=== PATIENT | male | born 2000 | race Two or more races ===

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

== ENCOUNTER → 2020-05-21 | Outpatient (CLI) | payer BC ==
[2020-05-21 12:42] LABS: Basophils # (auto) 0 10 ^3/uL (0-0.2); Basophils % (auto) 0.7 % (0.0-2.0); Eosinophils # (auto) 0.1 10 ^3/uL (0-0.8); Eosinophils % (auto) 1.6 % (0.0-7.0); Hematocrit 48.4 % (41.0-53.0); Hemoglobin 16.6 g/dL (13.5-17.5); Lymphocytes # (auto) 1.4 10 ^3/uL (0.4-5.4); Lymphocytes % (auto) 24.6 % (10.0-50.0); Mean Corpuscular Hemoglobin 31.8 pg (28.0-32.0); Mean Corpuscular Hgb Conc. 34.3 g/dL (32.0-36.0); Mean Corpuscular Volume 92.6 fL (80.0-100.0); Monocytes # (auto) 0.5 10 ^3/uL (0-1.3); Monocytes % (auto) 9.7 % (0.0-12.0); Neutrophils # (auto) 3.6 10 ^3/uL (1.6-8.6); Neutrophils % (auto) 63.4 % (37.0-80.0); Platelet Count (auto) 278 10^3/uL (140-450); Red Blood Cells 5.23 10^6/uL (4.5-5.90); Red Cell Distribution Width 13.4 % (11.8-14.3); White Blood Cell 5.7 10^3/uL (4.4-10.8)
[2020-05-21 12:58] LABS: Calcium 9.1 mg/dL (8.5-10.1); Potassium 3.9 mmol/L (3.5-5.1)
[2020-05-21 13:03] LABS: BUN/Creatinine Ratio 10.6; Bilirubin, Total 0.5 mg/dL (0.2-1.0); CRP High Sensitivity 0.14 mg/dL (< 0.3); Total Protein 7.7 g/dL (6.4-8.2)
== END | disposition home or self-care (01) ==
LOC: LAB 12:26
PROVIDERS: ATTEND Internal Medicine
DX: Z00.00 Encounter for general adult medical examination without abnormal findings (principal); E66.9 Obesity, unspecified; R51 Headache
CPT/HCPCS: 36415; 80053; 80061; 83036; 84443; 85025; 85652; 86141

== ENCOUNTER 2021-09-27 15:57 | Emergency (ER) | payer BC, MEDICAID ==
[~2021-09-27] VITALS: Ht 177.8 cm; Wt 95.3 kg
[2021-09-27 16:42] VITALS: BP 147/84
[2021-09-27] MEDS ORDERED: ACETAMINOPHEN 500 MG TAB PO ONE (16:45)
[2021-09-27] MEDS ORDERED: ACET-1080 PO (17:43)
[2021-09-27] MEDS ORDERED: HYDR50CA PO (17:43)
== END 2021-09-27 17:48 | disposition home or self-care (01) ==
LOC: ER 16:00
DX: G44.209 Tension-type headache, unspecified, not intractable (principal); F12.10 Cannabis abuse, uncomplicated
CPT/HCPCS: 70450

== ENCOUNTER → 2023-05-19 | Outpatient (CLI) | payer BC, MEDICAID ==
[~2023-05-19] MED LIST: ACET-1080 PO; HYDR50CA PO
[2023-05-19 10:09] LABS: Basophils # (auto) 0.1 10 ^3/uL (0-0.2); Basophils % (auto) 0.8 % (0.0-2.0); Eosinophils # (auto) 0.2 10 ^3/uL (0-0.8); Eosinophils % (auto) 2.8 % (0.0-7.0); Hematocrit 46.9 % (41.0-53.0); Hemoglobin 16.3 g/dL (13.5-17.5); Lymphocytes # (auto) 2.3 10 ^3/uL (0.4-5.4); Lymphocytes % (auto) 33.4 % (10.0-50.0); Mean Corpuscular Hemoglobin 31.7 pg (28.0-32.0); Mean Corpuscular Hgb Conc. 34.7 g/dL (32.0-36.0); Mean Corpuscular Volume 91.3 fL (80.0-100.0); Monocytes # (auto) 0.9 10 ^3/uL (0-1.3); Monocytes % (auto) 12.7 % (0.0-12.0); Neutrophils # (auto) 3.5 10 ^3/uL (1.6-8.6); Neutrophils % (auto) 50.3 % (37.0-80.0); Nucleated Red Blood Cells % 0.1 %; Red Blood Cells 5.14 10^6/uL (4.5-5.90); Red Cell Distribution Width 13.5 % (11.8-14.3); White Blood Cell 6.9 10^3/uL (4.4-10.8)
[2023-05-19 10:21] LABS: Urine Bacteria NONE SEEN /hpf (None Seen); Urine Blood Negative /uL (Negative); Urine Clarity Clear (Clear); Urine Color Yellow (Yellow); Urine Mucus FEW (None Seen); Urine Protein, UAD TRACE (Negative); Urine Specific Gravity 1.024 (1.001-1.035); Urine Urobilinogen Normal (Negative); Urine WBC 1 /hpf (0 - 3); Urine pH 5.5 (5.0-8.0)
[2023-05-19 11:00] LABS: Alanine Aminotransferase 88 U/L (7-40); Albumin 4.9 g/dL (3.2-4.8); Alkaline Phosphatase 100 U/L (46-116); Aspartate Aminotransferase 185 U/L (13-40); BUN/Creatinine Ratio 10.1 (10.0-20.0); Blood Urea Nitrogen 11 mg/dL (9-23); Calcium 9.7 mg/dL (8.5-10.1); Chloride 106 mmol/L (98-107); Glucose 97 mg/dL (74-106); LDL Cholesterol 127 mg/dL (< 100); Potassium 4.5 mmol/L (3.5-5.1); Sodium 138 mmol/L (136-145); Triglycerides 96 mg/dL (< 150); Uric Acid 11.1 mg/dL (3.7-9.2)
[2023-05-19 11:01] LABS: Bilirubin, Total 0.7 mg/dL (0.2-1.0); Cholesterol 188 mg/dL (< 200); HDL Cholesterol 47 mg/dL (40-59)
== END | disposition home or self-care (01) ==
LOC: LAB 09:51
PROVIDERS: ATTEND Student in an Organized Health Care Education/Training Program
DX: R73.9 Hyperglycemia, unspecified (principal); R03.0 Elevated blood-pressure reading, without diagnosis of hypertension; E55.9 Vitamin D deficiency, unspecified
CPT/HCPCS: 36415; 80053; 80061; 81001; 82306; 83036; 84443; 84550; 85025

== ENCOUNTER → 2023-08-06 | Outpatient (CLI) | payer BC, MEDICAID ==
[2023-08-06 12:16] LABS: Urine Bacteria NONE SEEN /hpf (None Seen); Urine Blood Negative /uL (Negative); Urine Clarity Clear (Clear); Urine Color Yellow (Yellow); Urine Mucus FEW (None Seen); Urine Protein, UAD Negative (Negative); Urine Specific Gravity 1.021 (1.001-1.035); Urine Urobilinogen Normal (Negative); Urine WBC <1 /hpf (0 - 3); Urine pH 5.5 (5.0-8.0)
[2023-08-06 12:38] LABS: Alanine Aminotransferase 82 U/L (7-40); Alkaline Phosphatase 97 U/L (46-116); Anion Gap 7 (5-15); BUN/Creatinine Ratio 11.8 (10.0-20.0); Blood Urea Nitrogen 11 mg/dL (9-23); Calcium 9.8 mg/dL (8.5-10.1); Carbon Dioxide 28 mmol/L (20-30); Chloride 104 mmol/L (98-107); Glucose 89 mg/dL (74-106); LDL Cholesterol 139 mg/dL (< 100); Potassium 4.4 mmol/L (3.5-5.1); Sodium 139 mmol/L (136-145)
[2023-08-06 12:39] LABS: Albumin 4.8 g/dL (3.2-4.8); Aspartate Aminotransferase 41 U/L (13-40); Bilirubin, Total 0.8 mg/dL (0.2-1.0); Cholesterol 195 mg/dL (< 200); HDL Cholesterol 45 mg/dL (40-59); Total Protein 7.6 g/dL (5.7-8.2)
[2023-08-06 13:15] LABS: Triglycerides 173 mg/dL (< 150)
== END | disposition home or self-care (01) ==
LOC: LAB 11:47
DX: E78.5 Hyperlipidemia, unspecified (principal); R74.8 Abnormal levels of other serum enzymes; E55.9 Vitamin D deficiency, unspecified
CPT/HCPCS: 36415; 80053; 80061; 81001; 82306; 86704; 86706; 86708; 86803; 87340

== ENCOUNTER → 2024-11-16 | Outpatient (CLI) | payer BC ==
[2024-11-16 09:11] LABS: Urine Bacteria None Seen /hpf (None Seen)
[2024-11-16 09:25] LABS: Urine Blood Negative /uL (Negative); Urine Clarity Clear (Clear); Urine Color Light-Yellow (Yellow); Urine Mucus FEW (None Seen); Urine Protein, UAD Negative (Negative); Urine Specific Gravity 1.021 (1.001-1.035); Urine Squamous Epithelial Cell None Seen /hpf (<5); Urine Urobilinogen Normal (Negative); Urine WBC < 1 /HPF (0-3); Urine pH 5.5 (5.0-9.0)
[2024-11-16 09:31] LABS: Basophils # (auto) 0 10 ^3/uL (0-0.2); Basophils % (auto) 0.4 % (0.0-2.0); Eosinophils # (auto) 0.2 10 ^3/uL (0-0.8); Eosinophils % (auto) 3.7 % (0.0-7.0); Hematocrit 47.1 % (41.0-53.0); Hemoglobin 16.2 g/dL (13.5-17.5); Lymphocytes # (auto) 2.1 10 ^3/uL (0.4-5.4); Lymphocytes % (auto) 34.2 % (10.0-50.0); Mean Corpuscular Hemoglobin 31.2 pg (28.0-32.0); Mean Corpuscular Hgb Conc. 34.4 g/dL (32.0-36.0); Mean Corpuscular Volume 90.6 fL (80.0-100.0); Monocytes # (auto) 0.6 10 ^3/uL (0-1.3); Monocytes % (auto) 9.6 % (0.0-12.0); Neutrophils # (auto) 3.1 10 ^3/uL (1.6-8.6); Neutrophils % (auto) 52.1 % (37.0-80.0); Platelet Count (auto) 293 10^3/uL (140-450); Red Cell Distribution Width 13.9 % (11.8-14.3)
[2024-11-16 10:16] LABS: Alkaline Phosphatase 103 U/L (46-116); Anion Gap 8 (5-15); Aspartate Aminotransferase 31 U/L (13-40); Bilirubin, Total 0.7 mg/dL (0.2-1.0); Blood Urea Nitrogen 12 mg/dL (9-23); Carbon Dioxide 26 mmol/L (20-31); Chloride 106 mmol/L (98-107); Glucose 102 mg/dL (74-106); HDL Cholesterol 46 mg/dL (40-59); Potassium 4.2 mmol/L (3.5-5.1); Sodium 140 mmol/L (136-145); Total Protein 7.7 g/dL (5.7-8.2); Triglycerides 133 mg/dL (< 150)
[2024-11-16 10:41] LABS: Alanine Aminotransferase 62 U/L (7-40); Albumin 4.9 g/dL (3.2-4.8); Cholesterol 216 mg/dL (< 200); LDL Cholesterol 158 mg/dL (< 100)
== END | disposition home or self-care (01) ==
LOC: LAB 08:46
PROVIDERS: ATTEND Student in an Organized Health Care Education/Training Program
DX: R53.83 Other fatigue (principal); R73.9 Hyperglycemia, unspecified; R03.0 Elevated blood-pressure reading, without diagnosis of hypertension; E55.9 Vitamin D deficiency, unspecified; J30.2 Other seasonal allergic rhinitis; Z80.0 Family history of malignant neoplasm of digestive organs
CPT/HCPCS: 36415; 80053; 80061; 81001; 82306; 82378; 82533; 82785; 83036; 84403; 84443; 85025; 86003

== ENCOUNTER 2025-05-28 07:59 | Outpatient (CLI) | payer BC ==
[2025-05-28 08:53] LABS: Hematocrit 45.5 % (41.0-53.0); Hemoglobin 15.9 g/dL (13.5-17.5); Mean Corpuscular Hemoglobin 31.8 pg (28.0-32.0); Mean Corpuscular Volume 90.8 fL (80.0-100.0); Nucleated Red Blood Cells % 0.1 %
[2025-05-28 09:16] LABS: Albumin 4.6 g/dL (3.2-4.8); Anion Gap 9 (5-15); BUN/Creatinine Ratio 14.6 (10.0-20.0); Blood Urea Nitrogen 14 mg/dL (9-23); Calcium 9.4 mg/dL (8.7-10.4); Carbon Dioxide 26 mmol/L (20-31); Chloride 106 mmol/L (98-107); Glucose 96 mg/dL (74-106); Potassium 4.5 mmol/L (3.5-5.1); Sodium 141 mmol/L (136-145); Total Protein 7.5 g/dL (5.7-8.2)
[2025-05-28 09:17] LABS: Alanine Aminotransferase 46 U/L (7-40); Alkaline Phosphatase 118 U/L (46-116); Bilirubin, Total 0.6 mg/dL (0.2-1.0)
[2025-05-28 10:35] LABS: Lipase 54 U/L (12-53); Uric Acid 10.2 mg/dL (3.7-9.2)
== END 2025-05-28 17:00 | disposition home or self-care (01) ==
LOC: LAB 07:59
PROVIDERS: ATTEND Student in an Organized Health Care Education/Training Program
DX: M10.471 Other secondary gout, right ankle and foot (principal); R11.0 Nausea; R10.11 Right upper quadrant pain
CPT/HCPCS: 36415; 80053; 83013; 83690; 84550; 85025

== ENCOUNTER → 2025-06-22 | Outpatient (CLI) | payer BC ==
[2025-06-22 08:15] LABS: Albumin 4.5 g/dL (3.2-4.8); Alkaline Phosphatase 111 U/L (46-116); Anion Gap 11 (5-15); BUN/Creatinine Ratio 13.3 (10.0-20.0); Blood Urea Nitrogen 13 mg/dL (9-23); Calcium 9.4 mg/dL (8.7-10.4); Carbon Dioxide 26 mmol/L (20-31); Chloride 104 mmol/L (98-107); Glucose 101 mg/dL (74-106); Potassium 4.6 mmol/L (3.5-5.1); Sodium 141 mmol/L (136-145); Total Protein 7.3 g/dL (5.7-8.2); Triglycerides 98 mg/dL (< 150)
[2025-06-22 08:16] LABS: Cholesterol 176 mg/dL (< 200)
[2025-06-22 08:17] LABS: Alanine Aminotransferase 44 U/L (7-40); Bilirubin, Total 0.6 mg/dL (0.2-1.0); HDL Cholesterol 40 mg/dL (40-59)
[2025-06-22 08:39] LABS: Uric Acid 8.4 mg/dL (3.7-9.2)
[2025-06-22 08:40] LABS: Lipase 52 U/L (12-53)
== END | disposition home or self-care (01) ==
LOC: LAB 06:55
PROVIDERS: ATTEND Student in an Organized Health Care Education/Training Program
DX: K85.90 Acute pancreatitis without necrosis or infection, unspecified (principal); M10.471 Other secondary gout, right ankle and foot
CPT/HCPCS: 36415; 80053; 80061; 83690; 84550; 86301